=== PATIENT | female | born 2000 | race Caucasian/White ===

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

== ENCOUNTER 2019-08-14 23:33 | Observation (INO) | payer OTHER ==
[2019-08-14] MEDS ORDERED: SODIUM CHLORIDE 0.9% 1,000 ML IV ONE (23:56)
--- NOTE | 2019-08-15 00:10 | ED ---
General Adult HPI - General Source: patient, family Mode of arrival: ambulatory Limitations: no limitations <Lorie Huggins - Last Filed: 08/15/19 01:43> <Raven Lockhart - Last Filed: 08/15/19 06:47> - General Chief complaint: Vaginal Bleeding Stated complaint: Dizziness,Vaginal Bleeding Time Seen by Provider: 08/14/19 23:47 - History of Present Illness Initial comments: 18-year-old female patient presents to the emergency department today for evaluation of heavy vaginal bleeding. Patient states that 2 weeks ago she took methotrexate to induce an . States she is having some light bleeding af ter taking the medication but today around 11 AM started having heavy vaginal bleeding. Patient states she is changing her pad every 2 hours. States she is passing clots but she is unsure how large they are. Patient states a couple of hours ago she developed some shortness of breath and started to feel dizzy. States she feels very shaky. Patient is with 2 elective abortions and one spontaneous . She denies any abdominal or back pain. Denies fever or chills. Patient denies any recent rash, cough, chest pain, nausea, vomiting, diarrhea, constipation, back pain, hematuria, dysuria, urinary urgency, urinary frequency, headache, visual changes, or any other complaints. (Lorie Huggins) - Related Data Home Medications Medication Instructions Recorded Confirmed Acetaminophen [Tylenol] 650 mg PO Q4H PRN 12/02/17 08/15/19 Allergies Allergy/AdvReac Type Severity Reaction Status Date / Time shellfish derived AdvReac Nausea & Verified 08/14/19 23:44 Vomiting Review of Systems ROS Other: All systems not noted in ROS Statement are negative. <Lorie Huggins - Last Filed: 08/15/19 01:43> ROS Other: All systems not noted in ROS Statement are negative. <Raven Lockhart - Last Filed: 08/15/19 06:47> ROS Statement: Those systems with pertinent positive or pertinent negative responses have been documented in the HPI. Past Medical History Past Medical History: No Reported History History of Any Multi-Drug Resistant Organisms: None Reported Past Surgical History: No Surgical Hx Reported Past Psychological History: No Psychological Hx Reported Smoking Status: Never smoker Past Alcohol Use History: None Reported Past Drug Use History: None Reported <Lorie Huggins - Last Filed: 08/15/19 01:43> General Exam Limitations: no limitations General appearance: alert, in no apparent distress, other (This is a well- developed, well-nourished adult female patient in no acute distress. Vital signs upon presentation are temperature 98.5F, pulse 120, respirations 20, blood pressure 118/70, pulse ox 100% on room air.) Eye exam: Present: normal appearance, PERRL, EOMI. Absent: scleral icterus, conjunctival injection, periorbital swelling ENT exam: Present: normal exam, normal oropharynx, mucous membranes moist Respiratory exam: Present: normal lung sounds bilaterally. Absent: respiratory distress, wheezes, rales, rhonchi, stridor Cardiovascular Exam: Present: regular rate, normal rhythm, normal heart sounds. Absent: systolic murmur, diastolic murmur, rubs, gallop, clicks GI/Abdominal exam: Present: soft, normal bowel sounds. Absent: distended, tenderness, guarding, rebound, rigid External exam: Present: normal external exam Speculum exam: Present: vaginal bleeding (Dark red vaginal bleeding), other (Clots in the vaginal vault) By manual exam: Present: uterine enlargement. Absent: adnexal tenderness, uterine tenderness Neurological exam: Present: alert, oriented X3, CN II-XII intact Psychiatric exam: Present: normal affect, normal mood Skin exam: Present: warm, dry, intact, normal color. Absent: rash <Lorie Huggins Prachi - Last Filed: 08/15/19 01:43> Course Vital Signs 08/14/19 08/15/19 08/15/19 23:38 00:07 01:53 Temperature 98.5 F 98.5 F Pulse Rate 120 H 101 H Pulse Rate [ 89 Right Brachial] Respiratory 20 16 Rate Blood Pressure 118/70 Blood Pressure 115/74 [Right Arm Sitting] O2 Sat by Pulse 91 L 100 98 Oximetry 08/15/19 02:13 Temperature 98.1 F Pulse Rate 84 Pulse Rate [ Right Brachial] Respiratory 18 Rate Blood Pressure 117/68 Blood Pressure [Right Arm Sitting] O2 Sat by Pulse 99 Oximetry Medical Decision Making - Lab Data Result diagrams: 08/15/19 00:00 08/15/19 00:06 - Radiology Data Radiology results: report reviewed <Lorie Huggins Prachi - Last Filed: 08/15/19 01:43> - Lab Data Result diagrams: 08/15/19 00:00 08/15/19 00:06 <Raven Lockhart - Last Filed: 08/15/19 06:47> - Medical Decision Making 18-year-old female patient presents to the emergency department today for evaluation of heavy vaginal bleeding. Patient did take medication to induce an approximately 2 weeks ago. Started having heavy bleeding around 11:00 this morning and has been changing her pad every 1-2 hours since. Physical examination reveals soft nontender abdomen. Pelvic exam did reveal dark red blood and clots in the vaginal vault. Labs reviewed and did reveal decreased hemoglobin at 9.3. HCG is 3,000. ABO/Rh is A+. Ultrasound was obtained and did show debris within the uterus and a thickened endometrium concerning for retained products of conception. Patient's vital signs remained stable on the department. My attending Dr. Lockhart did speak to the on-call business excellence manager Dr. Waters who will admit patient overnight and see in the morning for possible D&C. I did discuss findings and results with the patient. She verbalizes understanding and agrees with this plan per (Lorie Huggins) Workup is concerning for retained products of conception, persistent vaginal bleeding, new anemia. Labs and ultrasound were discussed with Dr. Waters who agrees with plan for admission and likely D&C in the morning. Patient was made nothing by mouth IV fluids and pain management were ordered upon admission. (Raven Lockhart) - Lab Data Lab Results 08/15/19 08/15/19 08/15/19 Range/Units 00:00 00:06 00:06 WBC 8.2 (4.0-11.0) k/uL RBC 3.64 L (3.80-5.40) m/uL Hgb 9.3 L (11.4-16.0) gm/dL Hct 29.1 L (34.0-46.0) % MCV 79.8 L (80.0-100.0) fL MCH 25.7 (25.0-35.0) pg MCHC 32.2 (31.0-37.0) g/dL RDW 15.8 H (11.5-15.5) % Plt Count 253 (150-450) k/uL Neutrophils % 65 % Lymphocytes % 29 % Monocytes % 4 % Eosinophils % 1 % Basophils % 1 % Neutrophils # 5.4 (1.3-7.7) k/uL Lymphocytes # 2.4 (1.0-4.8) k/uL Monocytes # 0.3 (0-1.0) k/uL Eosinophils # 0.1 (0-0.7) k/uL Basophils # 0.0 (0-0.2) k/uL Hypochromasia Slight PT 11.3 (9.0-12.0) sec INR 1.1 (<1.2) APTT 24.2 (22.0-30.0) sec Sodium (137-145) mmol/L Potassium (3.5-5.1) mmol/L Chloride (98-107) mmol/L Carbon Dioxide (22-30) mmol/L Anion Gap mmol/L BUN (7-17) mg/dL Creatinine (0.52-1.04) mg/dL Est GFR (CKD-EPI)AfAm (>60 ml/min/1.73 sqM) Est GFR (CKD-EPI)NonAf (>60 ml/min/1.73 sqM) Glucose (74-99) mg/dL Calcium (8.4-10.2) mg/dL Total Bilirubin (0.2-1.3) mg/dL AST (14-36) U/L ALT (4-34) U/L Alkaline Phosphatase (38-126) U/L Total Protein (6.3-8.2) g/dL Albumin (3.5-5.0) g/dL HCG, Quant mIU/mL Urine Color Red Urine Appearance Cloudy H (Clear) Urine pH 5.5 (5.0-8.0) Ur Specific Joffre 1.024 (1.001-1.035) Urine Protein 2+ H (Negative) Urine Glucose (UA) Negative (Negative) Urine Ketones Trace H (Negative) Urine Blood Large H (Negative) Urine Nitrite Negative (Negative) Urine Bilirubin Negative (Negative) Urine Urobilinogen <2.0 (<2.0) mg/dL Ur Leukocyte Esterase Moderate H (Negative) Urine RBC >182 H (0-5) /hpf Urine WBC >182 H (0-5) /hpf Calcium Oxalate Crystal Occasional H (None) /hpf Urine Mucus Many H (None) /hpf Blood Type Blood Type Recheck Bld Type Recheck Status 08/15/19 08/15/19 Range/Units 00:06 00:06 WBC (4.0-11.0) k/uL RBC (3.80-5.40) m/uL Hgb (11.4-16.0) gm/dL Hct (34.0-46.0) % MCV (80.0-100.0) fL MCH (25.0-35.0) pg MCHC (31.0-37.0) g/dL RDW (11.5-15.5) % Plt Count (150-450) k/uL Neutrophils % % Lymphocytes % % Monocytes % % Eosinophils % % Basophils % % Neutrophils # (1.3-7.7) k/uL Lymphocytes # (1.0-4.8) k/uL Monocytes # (0-1.0) k/uL Eosinophils # (0-0.7) k/uL Basophils # (0-0.2) k/uL Hypochromasia PT (9.0-12.0) sec INR (<1.2) APTT (22.0-30.0) sec Sodium 136 L (137-145) mmol/L Potassium 3.9 (3.5-5.1) mmol/L Chloride 103 (98-107) mmol/L Carbon Dioxide 21 L (22-30) mmol/L Anion Gap 12 mmol/L BUN 13 (7-17) mg/dL Creatinine 0.67 (0.52-1.04) mg/dL Est GFR (CKD-EPI)AfAm >90 (>60 ml/min/1.73 sqM) Est GFR (CKD-EPI)NonAf >90 (>60 ml/min/1.73 sqM) Glucose 154 H (74-99) mg/dL Calcium 9.5 (8.4-10.2) mg/dL Total Bilirubin 0.2 (0.2-1.3) mg/dL AST 18 (14-36) U/L ALT 11 (4-34) U/L Alkaline Phosphatase 43 (38-126) U/L Total Protein 6.9 (6.3-8.2) g/dL Albumin 4.3 (3.5-5.0) g/dL HCG, Quant 3043.2 mIU/mL Urine Color Urine Appearance (Clear) Urine pH (5.0-8.0) Ur Specific Joffre (1.001-1.035) Urine Protein (Negative) Urine Glucose (UA) (Negative) Urine Ketones (Negative) Urine Blood (Negative) Urine Nitrite (Negative) Urine Bilirubin (Negative) Urine Urobilinogen (<2.0) mg/dL Ur Leukocyte Esterase (Negative) Urine RBC (0-5) /hpf Urine WBC (0-5) /hpf Calcium Oxalate Crystal (None) /hpf Urine Mucus (None) /hpf Blood Type A Positive Blood Type Recheck A Pos Bld Type Recheck Status No - Radiology Data Ultrasound of the pelvis is obtained. Report was reviewed in its entirety. Impression by Dr. Quinteros shows mixed echogenicity in the lower uterine segment that could relate to blood clot and retained products or no adnexal mass. No evidence of ovarian torsion. (Lorie Huggins) Disposition Decision to Admit Reason: Admit from EC Decision Date: 08/15/19 Decision Time: 01:42 <Lorie Huggins - Last Filed: 08/15/19 01:43> <Raven Lockhart - Last Filed: 08/15/19 06:47> Clinical Impression: Episode of heavy vaginal bleeding, Retained products of conception Disposition: ADMITTED IP TO THIS [facility] Condition: Serious
[2019-08-15 00:24] LABS: Basophils % (A) 1 %; Eosinophils # (A) 0.1 k/uL (0-0.7); Eosinophils % (A) 1 %; HCT 29.1 % (34.0-46.0); HGB 9.3 gm/dL (11.4-16.0); Hypochromasia Slight; Lymphocytes # (A) 2.4 k/uL (1.0-4.8); Lymphocytes % (A) 29 %; MCH 25.7 pg (25.0-35.0); MCHC 32.2 g/dL (31.0-37.0); MCV 79.8 fL (80.0-100.0); Monocytes # (A) 0.3 k/uL (0-1.0); Monocytes % (A) 4 %; Neutrophils # (A) 5.4 k/uL (1.3-7.7); Neutrophils % (A) 65 %; Platelet Count 253 k/uL (150-450); RBC 3.64 m/uL (3.80-5.40); RDW 15.8 % (11.5-15.5); WBC 8.2 k/uL (4.0-11.0)
[2019-08-15 00:31] LABS: Appearance,Urine Cloudy (Clear); Bilirubin,Urine Negative (Negative); Blood,Urine Large (Negative); Calcium Oxalate Crystals,Urine Occasional /hpf; Color,Urine Red; Glucose,Urine (UA) Negative (Negative); Ketones,Urine Trace (Negative); Leukocyte Esterase,Urine Moderate (Negative); Mucus,Urine Many /hpf; Nitrite,Urine Negative (Negative); PH, Urine 5.5 (5.0-8.0); Protein,Urine 2+ (Negative); RBC,Urine >182 /hpf (0-5); Specific Gravity,Urine 1.024 (1.001-1.035); Urobilinogen,Urine <2.0 mg/dL (<2.0); WBC,Urine >182 /hpf (0-5)
[2019-08-15 00:33] LABS: ALT 11 U/L (4-34); AST 18 U/L (14-36); African American GFR (CKD) >90 (>60 ml/min/1.73 sqM); Albumin 4.3 g/dL (3.5-5.0); Alkaline Phosphatase 43 U/L (38-126); Anion Gap 12 mmol/L; Blood Urea Nitrogen 13 mg/dL (7-17); Calcium 9.5 mg/dL (8.4-10.2); Carbon Dioxide 21 mmol/L (22-30); Chloride 103 mmol/L (98-107); Glucose 154 mg/dL (74-99); Non-African American GFR(CKD) >90 (>60 ml/min/1.73 sqM); Potassium 3.9 mmol/L (3.5-5.1); Sodium 136 mmol/L (137-145); Total Bilirubin 0.2 mg/dL (0.2-1.3); Total Protein 6.9 g/dL (6.3-8.2)
[2019-08-15 00:39] LABS: INR 1.1 (<1.2); Partial Thromboplastin Time 24.2 sec (22.0-30.0); Prothrombin Time 11.3 sec (9.0-12.0)
[2019-08-15 00:50] LABS: HCG,Quantitative Serum 3043.2 mIU/mL
--- NOTE | 2019-08-15 00:53 | US ---
EXAMINATION TYPE: US pelvic complete DATE OF EXAM: 08/15/2019 COMPARISON: NONE CLINICAL HISTORY: heavy vaginal bleeding/Elective 2 wks ago. TECHNIQUE: . Transabdominal sonographic images of the pelvis were acquired. Date of LMP: June 2019 EXAM MEASUREMENTS: Uterus: 8.5 x 3.7 x 4.3 cm Endometrial Stripe: 1.3 cm Right Ovary: 4.0 x 2.0 x 2.5 cm Left Ovary: 1.7 x 1.2 x 1.5 cm 1. Uterus: Anteverted Complex debris visualized within cervix, possible blood as patient is bleedi ng heavily 2. Endometrium: Thickened and complex with vascularity, possible retained products vs other 3. Right Ovary: Cyst visualized measuring 2.3 x 1.4 x 1.4 cm 4. Left Ovary: wnl Spectral, color and waveform doppler imaging shows good arterial and venous flow within the ovaries ; there is no evidence for ovarian torsion. 5. Bilateral Adnexa: wnl 6. Posterior cul-de-sac: wnl IMPRESSION: There is mixed echogenicity in the lower uterine segment that could relate to blood clot and retained products. No adnexal mass. No evidence of ovarian torsion.
[2019-08-15] MEDS ORDERED: ONDANSETRON 4 MG/2 ML VIAL IVP PRN (01:39)
[2019-08-15] MEDS ORDERED: NALOXONE 0.4 MG/ML 1 ML VIAL IV PRN (01:39)
[2019-08-15] MEDS ORDERED: SODIUM CHLORIDE 0.9% 1,000 ML IV SCH (01:45)
[2019-08-15 07:52] VITALS: BP 111/56; PULSE 79; RESP 16; TEMP 97.8
[2019-08-15 08:49] LABS: HCT 23.5 % (34.0-46.0); Hypochromasia Moderate; MCH 25.7 pg (25.0-35.0); MCHC 31.5 g/dL (31.0-37.0); MCV 81.4 fL (80.0-100.0); Mean Platelet Volume 7.9; Platelet Count 158 k/uL (150-450); RBC 2.88 m/uL (3.80-5.40); WBC 5.3 k/uL (4.0-11.0)
[2019-08-15 08:55] LABS: HGB 7.4 gm/dL (11.4-16.0)
--- NOTE | 2019-09-06 12:42 | P.HPOB ---
History of Present Illness H&P Date: 08/15/19 Chief Complaint: Vaginal bleeding, status post elective AB This is a 18-year-old 3 para 0020 that states she underwent methotrexate treatment for 6 week on 08/02. Patient has a history of 2 prior elective terminations. Patient states yesterday she noted heavier vaginal bleeding began around 11, she started with passage of clots and was saturating a pad every 2 hours. Patient denies dizziness, lightheadedness, nausea, vomiting. Of note patient notes that after the procedure on she did not have any bleeding until yesterday. Patient presented to the emergency department last evening ultrasound was completed with a thickened endometrium being noted. No adnexal masses were appreciated. Of note hemoglobin was noted to be 9.3. Vital signs were noted to be stable. She notes her menstrual cycles to be regular typically every 2830 days, lasting 3-7 days with moderate flow. Patient denies being on contraceptive at this time, she denies ever taking her control pill or form of control. Patient does desire control when this process is complete. Review of Systems Constitutional: Denies chills, Denies fatigue, Denies fever Ears, nose, mouth and throat: Denies headache Cardiovascular: Denies leg edema Respiratory: Denies dyspnea Gastrointestinal: Denies nausea, Denies vomiting Past Medical History Past Medical History: No Reported History History of Any Multi-Drug Resistant Organisms: None Reported Past Surgical History: No Surgical Hx Reported Past Anesthesia/Blood Transfusion Reactions: No Reported Reaction Past Psychological History: No Psychological Hx Reported Smoking Status: Never smoker Past Alcohol Use History: None Reported Past Drug Use History: None Reported - Past Family History Father Family Medical History: No Reported History Medications and Allergies Home Medications Medication Instructions Recorded Confirmed Type Acetaminophen [Tylenol] 650 mg PO Q4H PRN 12/02/17 08/15/19 History Allergies Allergy/AdvReac Type Severity Reaction Status Date / Time shellfish derived AdvReac Nausea & Verified 08/14/19 23:44 Vomiting Exam Osteopathic Statement: *. No significant issues noted on an osteopathic structural exam other than those noted in the History and Physical/Consult. Vital Signs Temp Pulse Pulse Resp BP BP Pulse Ox 08/15/19 02:13 98.1 F 84 18 117/68 99 08/15/19 01:53 98.5 F 89 16 115/74 98 08/15/19 00:07 101 H 100 08/14/19 23:38 98.5 F 120 H 20 118/70 91 L Intake and Output 08/14/19 08/15/19 08/15/19 22:59 06:59 14:59 Other: Weight 63.503 kg Targeted physical exam is performed in this date and steward/stewardess night a well-nourished well-developed female in no acute distress, patient was resting comfortably when I entered the room. Breathing is noted to be nonlabored, heart has regular rate and rhythm, abdomen is noted be 6 soft and nontender, vaginal exam is deferred, as it was done last night in the emergency department, and she denies heavy bleeding sense last evening. Scant blood on pad overnight. Results Result Diagrams: 08/15/19 00:00 08/15/19 00:06 Abnormal Lab Results - Last 24 Hours (Table) 08/15/19 08/15/19 08/15/19 Range/Units 00:00 00:06 00:06 RBC 3.64 L (3.80-5.40) m/uL Hgb 9.3 L (11.4-16.0) gm/dL Hct 29.1 L (34.0-46.0) % MCV 79.8 L (80.0-100.0) fL RDW 15.8 H (11.5-15.5) % Sodium 136 L (137-145) mmol/L Carbon Dioxide 21 L (22-30) mmol/L Glucose 154 H (74-99) mg/dL Urine Appearance Cloudy H (Clear) Urine Protein 2+ H (Negative) Urine Ketones Trace H (Negative) Urine Blood Large H (Negative) Ur Leukocyte Esterase Moderate H (Negative) Urine RBC >182 H (0-5) /hpf Urine WBC >182 H (0-5) /hpf Calcium Oxalate Crystal Occasional H (None) /hpf Urine Mucus Many H (None) /hpf Assessment and Plan (1) Status post elective Current Visit: Yes Status: Acute Code(s): Z98.890 - OTHER SPECIFIED POSTPROCEDURAL STATES SNOMED Code(s): 043514482 (2) Episode of heavy vaginal bleeding Current Visit: Yes Status: Acute Code(s): N93.9 - ABNORMAL UTERINE AND VAGINAL BLEEDING, UNSPECIFIED SNOMED Code(s): 048808484 Plan: This pleasant 18-year-old 3 para 0020 presented to the emergency department last evening with complaints of heavy vaginal bleeding throughout the day. Patient is status post methotrexate treatment on 08/02 for elective AB. Patient states she did not have bleeding after the treatment until yesterday when she noted bleeding with passage of clots. Patient had ultrasound done last evening with a thickened endometrium being noted. Patient was noted to be having heavier bleeding throughout the day most likely this is contributing to findings of the ultrasound. Upon talking to the patient this morning she is well and without symptoms. Bleeding is noted to be very minimal. Will order CBC, if bleeding is stable allow patient to eat, and offer Cytotec to help with completion of elective AB.
--- NOTE | 2019-09-09 08:31 | P.DS ---
Providers Date of admission: 08/15/19 01:41 Expected date of discharge: 08/15/19 Attending physician: Haylie Waters Primary care physician: Stated None - Discharge Diagnosis(es) (1) Status post elective Status: Acute (2) Episode of heavy vaginal bleeding Status: Acute Hospital Course: This is a 18-year-old 3 para 0020 that underwent methotrexate treatment for a termination on 08/02. Patient has a history of 2 prior elective terminations. Patient notes she started having heavier vaginal bleeding3 and began passing clots she was saturating pad every 2 hours. Patient denies dizziness lightheadedness her nausea and vomiting. Patient notes after the procedure she had minimal bleeding. Patient was presented to the emergency department last evening ultrasound was performed thickened endometrium was noted no adnexal masses are appreciated. Hemoglobin was noted to be 9.3 vital signs are noted to be stable. Patient was admitted overnight minimal vaginal bleeding was noted no cramping. Upon examination patient stated she felt well and wishes discharge home as her bleeding had ceased. Patient was counseled on the need for Cytotec to be given for completion of termination. Patient stated understanding and stated she would fill the prescription, follow-up instructions were discussed with patient in detail. Patient Condition at Discharge: Good Plan - Discharge Summary New Discharge Prescriptions: No Action Acetaminophen Tab [Tylenol Tab] 1,000 mg PO Q6HR PRN PRN Reason: Pain Or Fever > 100.5 miSOPROStoL [Cytotec] 400 mcg PO ONCE Discharge Medication List Acetaminophen Tab [Tylenol Tab] 1,000 mg PO Q6HR PRN 08/18/19 [History] miSOPROStoL [Cytotec] 400 mcg PO ONCE 08/18/19 [History] Follow up Appointment(s)/Referral(s): None,Stated [Primary Care Provider] - 1-2 days Haylie Waters DO [Doctor of Osteopathic Medicine] - 1 Week Activity/Diet/Wound Care/Special Instructions: pelvic rest, NO intercourse until quant. B HCG is zero. she is to follow up with myself next week. bleeding precautions reviewed. she can expect a heavy period like bleed with some passage of clots. OTC ibuprofen for pain relief. cytotec 200mcg, 2 po for completion of elective Ab. Discharge Disposition: HOME SELF-CARE
== END 2019-08-15 10:08 | disposition home or self-care (01) ==
LOC: EC 23:33 → 4FBP 08-15 01:41
PROVIDERS: ADMIT Obstetrics & Gynecology Obstetrics; ATTEND Obstetrics & Gynecology Obstetrics
DX: O07.1 Delayed or excessive hemorrhage following failed attempted termination of pregnancy (principal); Z91.013 Allergy to seafood; Z03.818 Encounter for observation for suspected exposure to other biological agents ruled out
CPT/HCPCS: 96360; 99285; 36415; 86900; 86901; 80053; 85025; 85027; 85610; 85730; 81001; 84702; 93975; 76856; G0378; U0003

== ENCOUNTER 2019-08-18 00:20 | Observation (INO) | payer OTHER ==
[2019-08-18 01:04] LABS: Basophils % (A) 0 %; Eosinophils % (A) 1 %; HCT 20.3 % (34.0-46.0); Hypochromasia Slight; Lymphocytes # (A) 0.8 k/uL (1.0-4.8); Lymphocytes % (A) 30 %; MCH 24.3 pg (25.0-35.0); MCV 78.4 fL (80.0-100.0); Mean Platelet Volume 9.8; Microcytosis Slight; Monocytes # (A) 0.1 k/uL (0-1.0); Monocytes % (A) 5 %; Neutrophils # (A) 1.6 k/uL (1.3-7.7); Neutrophils % (A) 60 %; Platelet Count 156 k/uL (150-450); RBC 2.59 m/uL (3.80-5.40); WBC 2.6 k/uL (4.0-11.0)
[2019-08-18 01:12] LABS: ALT 11 U/L (4-34); AST 21 U/L (14-36); African American GFR (CKD) >90 (>60 ml/min/1.73 sqM); Albumin 3.9 g/dL (3.5-5.0); Alkaline Phosphatase 42 U/L (38-126); Anion Gap 12 mmol/L; Blood Urea Nitrogen 9 mg/dL (7-17); Calcium 8.6 mg/dL (8.4-10.2); Carbon Dioxide 22 mmol/L (22-30); Chloride 101 mmol/L (98-107); Glucose 171 mg/dL (74-99); Non-African American GFR(CKD) >90 (>60 ml/min/1.73 sqM); Potassium 3.4 mmol/L (3.5-5.1); Sodium 135 mmol/L (137-145); Total Bilirubin 0.3 mg/dL (0.2-1.3); Total Protein 6.2 g/dL (6.3-8.2)
[2019-08-18 01:13] LABS: INR 1.1 (<1.2); Partial Thromboplastin Time 23.7 sec (22.0-30.0); Prothrombin Time 11.4 sec (9.0-12.0)
[2019-08-18 01:18] LABS: HGB 6.3 gm/dL (11.4-16.0)
[2019-08-18 01:28] LABS: HCG,Quantitative Serum 1231.4 mIU/mL
--- NOTE | 2019-08-18 01:48 | US ---
EXAMINATION TYPE: US transvaginal DATE OF EXAM: 08/18/2019 COMPARISON: US 08/15/2019 CLINICAL HISTORY: heavy vag bleeding. Heavy vaginal bleeding since 08/14/2019. Patient had in July. . TECHNIQUE: Transvaginal (TV). Date of LMP: 06/13/2019 EXAM MEASUREMENTS: Uterus: 8.1 x 4.3 x 3.6 cm Endometrial Stripe: 1.12 cm Right Ovary: 5.5 x 3.2 x 2.2 cm Left Ovary: 4.2 x 1.7 x 1.8 cm 1. Uterus: Anteverted Complex area with vascularity seen lower within lower uterine endometrium an d cervix: 5.5 x 2.7 x 1.1 cm. 2. Endometrium: Appears heterogeneous, thickened, and to contain complex vascular material as mentangelica pool above. Measures 1.12 cm thick. 3. Right Ovary: Measures enlarged. Anechoic area seen: 2.7 x 2.6 x 1.2 cm. 4. Left Ovary: Measures enlarged. Follicles seen. Spectral, color and waveform doppler imaging shows arterial and venous flow within the ovaries. 5. Bilateral Adnexa: Fluid seen adjacent to right ovary: 1.6 x 1.0 x 0.7 cm. 6. Posterior cul-de-sac: Appears wnl. IMPRESSION: There is complex material in the uterine cavity extending into the cervix consistent with retained products and blood clot. No adnexal mass. Minimal fluid adjacent to the right ovary. No son dence of ovarian torsion.
[2019-08-18] MEDS ORDERED: ONDANSETRON 4 MG/2 ML VIAL IVP STA (01:49)
--- NOTE | 2019-08-18 01:55 | ED ---
Female Urogenital HPI - General Chief complaint: Vaginal Bleeding Stated complaint: Vaginal bleeding Time Seen by Provider: 08/18/19 00:29 Source: patient Mode of arrival: ambulatory Limitations: no limitations - History of Present Illness Initial comments: 18-year-old female patient presents to the emergency department today for evaluation of heavy vaginal bleeding. Patient states that she took Misoprostol to induce about 2.5 weeks ago. Patient was seen for heavy vaginal bleeding 3 days ago and admitted for retained products of conception. Patient states that the OBGYN gave her additional dosage of Misoprostol to aid in passage of products of conception. She states that she took the doses earlier today. Patient states that she has had continued heavy bleeding. She has started to feel dizzy, weak, and near syncopal with standing. States that whenever she stands she gets a head wang, buzzing in her ears, and feels like she is going to pass out. She states that her legs are too weak to hold her. She has increased shortness of breath with any activity. She denies abdominal or back pain. Denies any fever or chills. Patient denies any recent rash, cough, chest pain, vomiting, diarrhea, constipation, back pain, numbness, tingling, hematuria, dysuria, urinary urgency, urinary frequency, visual changes, or any other complaints. Last Menstrual Period: 06/13/19 - Related Data Home Medications Medication Instructions Recorded Confirmed Acetaminophen [Tylenol] 650 mg PO Q4H PRN 12/02/17 08/15/19 Allergies Allergy/AdvReac Type Severity Reaction Status Date / Time shellfish derived AdvReac Nausea & Verified 08/18/19 00:28 Vomiting Review of Systems ROS Statement: Those systems with pertinent positive or pertinent negative responses have been documented in the HPI. ROS Other: All systems not noted in ROS Statement are negative. Past Medical History Past Medical History: No Reported History Additional Past Medical History / Comment(s): . History of Any Multi-Drug Resistant Organisms: None Reported Past Surgical History: No Surgical Hx Reported Past Anesthesia/Blood Transfusion Reactions: No Reported Reaction Past Psychological History: No Psychological Hx Reported Smoking Status: Never smoker Past Alcohol Use History: None Reported Past Drug Use History: None Reported - Past Family History Father Family Medical History: No Reported History General Exam Limitations: no limitations General appearance: alert, in no apparent distress, other (This is a well- developed, well-nourished adult female patient in no acute distress. Patient appears very pale. Vital signs upon presentation are temperature 98.7F, pulse 128, respirations 18, blood pressure 100/58, pulse ox 100% on room air.) Eye exam: Present: normal appearance, PERRL, EOMI, other (Pale conjunctiva). Absent: scleral icterus, conjunctival injection, periorbital swelling ENT exam: Present: normal exam, mucous membranes moist Respiratory exam: Present: normal lung sounds bilaterally. Absent: respiratory distress, wheezes, rales, rhonchi, stridor Cardiovascular Exam: Present: normal rhythm, tachycardia, normal heart sounds. Absent: systolic murmur, diastolic murmur, rubs, gallop, clicks GI/Abdominal exam: Present: soft, normal bowel sounds. Absent: distended, tenderness, guarding, rebound, rigid Neurological exam: Present: alert, oriented X3, CN II-XII intact Psychiatric exam: Present: normal affect, normal mood Skin exam: Present: warm, dry, intact, pallor. Absent: rash Course Vital Signs 08/18/19 08/18/19 08/18/19 00:22 01:11 01:35 Temperature 98.7 F Pulse Rate 128 H 118 H Respiratory 18 20 Rate Blood Pressure 100/58 123/69 105/70 O2 Sat by Pulse 100 97 Oximetry 08/18/19 08/18/19 08/18/19 02:09 02:18 02:28 Temperature 98.5 F 98.5 F 97.6 F Pulse Rate 106 H 103 H 108 H Respiratory 16 16 16 Rate Blood Pressure 107/63 102/65 103/68 O2 Sat by Pulse Oximetry Medical Decision Making - Medical Decision Making 18-year-old female patient presents to the emergency department today for evaluation of heavy vaginal bleeding, weakness, dizziness, any near syncope. Patient took misoprostol 2.5 weeks ago to induce . About 4-5 days ago s he started having heavy vaginal bleeding. Was admitted to the hospital for anemia and retained products, was given additional dosage of misoprostol and discharged. Patient states that her heavy bleeding has persisted. Abdomen is soft and nontender. Patient exhibits mild vaginal bleeding at this time which is dark red in color. Ultrasound was obtained and shows retained products of conception. Hemoglobin is decreased at 6.3 down from 7.4 on 08/15/2019. The case was discussed with airport traffic controller OBGYN Dr. Stapleton who will be taking patient for Suction D&C in the morning. Patient will receive blood transfusion. I did discuss findings, results, and plan with the patient and her mother, they are agreeable. - Lab Data Result diagrams: 08/18/19 00:54 08/18/19 00:54 Lab Results 08/18/19 08/18/19 08/18/19 Range/Units 00:54 00:54 00:54 WBC 2.6 L (4.0-11.0) k/uL RBC 2.59 L (3.80-5.40) m/uL Hgb 6.3 L* (11.4-16.0) gm/dL Hct 20.3 L (34.0-46.0) % MCV 78.4 L (80.0-100.0) fL MCH 24.3 L (25.0-35.0) pg MCHC 31.0 (31.0-37.0) g/dL RDW 16.0 H (11.5-15.5) % Plt Count 156 (150-450) k/uL Neutrophils % 60 % Lymphocytes % 30 % Monocytes % 5 % Eosinophils % 1 % Basophils % 0 % Neutrophils # 1.6 (1.3-7.7) k/uL Lymphocytes # 0.8 L (1.0-4.8) k/uL Monocytes # 0.1 (0-1.0) k/uL Eosinophils # 0.0 (0-0.7) k/uL Basophils # 0.0 (0-0.2) k/uL Hypochromasia Slight Microcytosis Slight PT 11.4 (9.0-12.0) sec INR 1.1 (<1.2) APTT 23.7 (22.0-30.0) sec Sodium 135 L (137-145) mmol/L Potassium 3.4 L (3.5-5.1) mmol/L Chloride 101 (98-107) mmol/L Carbon Dioxide 22 (22-30) mmol/L Anion Gap 12 mmol/L BUN 9 (7-17) mg/dL Creatinine 0.67 (0.52-1.04) mg/dL Est GFR (CKD-EPI)AfAm >90 (>60 ml/min/1.73 sqM) Est GFR (CKD-EPI)NonAf >90 (>60 ml/min/1.73 sqM) Glucose 171 H (74-99) mg/dL Calcium 8.6 (8.4-10.2) mg/dL Total Bilirubin 0.3 (0.2-1.3) mg/dL AST 21 (14-36) U/L ALT 11 (4-34) U/L Alkaline Phosphatase 42 (38-126) U/L Total Protein 6.2 L (6.3-8.2) g/dL Albumin 3.9 (3.5-5.0) g/dL HCG, Quant 1231.4 mIU/mL Blood Type Blood Type Recheck Bld Type Recheck Status Antibody Screen Crossmatch Spec Expiration Date 08/18/19 Range/Units 00:54 WBC (4.0-11.0) k/uL RBC (3.80-5.40) m/uL Hgb (11.4-16.0) gm/dL Hct (34.0-46.0) % MCV (80.0-100.0) fL MCH (25.0-35.0) pg MCHC (31.0-37.0) g/dL RDW (11.5-15.5) % Plt Count (150-450) k/uL Neutrophils % % Lymphocytes % % Monocytes % % Eosinophils % % Basophils % % Neutrophils # (1.3-7.7) k/uL Lymphocytes # (1.0-4.8) k/uL Monocytes # (0-1.0) k/uL Eosinophils # (0-0.7) k/uL Basophils # (0-0.2) k/uL Hypochromasia Microcytosis PT (9.0-12.0) sec INR (<1.2) APTT (22.0-30.0) sec Sodium (137-145) mmol/L Potassium (3.5-5.1) mmol/L Chloride (98-107) mmol/L Carbon Dioxide (22-30) mmol/L Anion Gap mmol/L BUN (7-17) mg/dL Creatinine (0.52-1.04) mg/dL Est GFR (CKD-EPI)AfAm (>60 ml/min/1.73 sqM) Est GFR (CKD-EPI)NonAf (>60 ml/min/1.73 sqM) Glucose (74-99) mg/dL Calcium (8.4-10.2) mg/dL Total Bilirubin (0.2-1.3) mg/dL AST (14-36) U/L ALT (4-34) U/L Alkaline Phosphatase (38-126) U/L Total Protein (6.3-8.2) g/dL Albumin (3.5-5.0) g/dL HCG, Quant mIU/mL Blood Type A Positive Blood Type Recheck A Pos Bld Type Recheck Status No Antibody Screen NEGATIVE Crossmatch See Detail Spec Expiration Date 08/21/2019 - 3269 - Radiology Data Radiology results: report reviewed, image reviewed Transvaginal ultrasound was obtained. Report was reviewed in its entirety. Impression by Dr. Quinteros shows Material uterine cavity extending into the cervix consistent with retained products of blood clot. No adnexal mass. Minimal fluid adjacent to the right ovary. No evidence of ovarian torsion. Disposition Clinical Impression: Vaginal bleeding, Retained products of conception, Symptomatic anemia Disposition: ADMITTED IP TO THIS [facility] Condition: Serious Referrals: None,Stated [Primary Care Provider] - 1-2 days Decision to Admit Reason: Admit from EC Decision Date: 08/18/19 Decision Time: 02:15
[2019-08-18] MEDS ORDERED: ONDANSETRON 4 MG/2 ML VIAL IVP PRN (02:12)
[2019-08-18] MEDS ORDERED: NALOXONE 0.4 MG/ML 1 ML VIAL IV PRN (02:12)
[2019-08-18] MEDS ORDERED: FAMOTIDINE 20 MG/2 ML VIAL IV STA (02:14)
[2019-08-18 06:06] LABS: Anisocytosis Slight; Basophils % (A) 1 %; Eosinophils # (A) 0.1 k/uL (0-0.7); Eosinophils % (A) 2 %; HCT 21.2 % (34.0-46.0); Lymphocytes # (A) 0.9 k/uL (1.0-4.8); Lymphocytes % (A) 24 %; MCH 27.3 pg (25.0-35.0); MCHC 33.8 g/dL (31.0-37.0); MCV 80.9 fL (80.0-100.0); Mean Platelet Volume 8.4; Monocytes # (A) 0.4 k/uL (0-1.0); Monocytes % (A) 10 %; Neutrophils # (A) 2.3 k/uL (1.3-7.7); Neutrophils % (A) 61 %; Platelet Count 188 k/uL (150-450); RBC 2.62 m/uL (3.80-5.40); RDW 16.6 % (11.5-15.5); WBC 3.7 k/uL (4.0-11.0)
[2019-08-18 06:07] LABS: HGB 7.1 gm/dL (11.4-16.0)
--- NOTE | 2019-08-18 07:39 | P.HPOB ---
History of Present Illness H&P Date: 08/18/19 Chief Complaint: Continued heavy vaginal bleeding, dizziness and weakness. This is a 18-year-old white female 3 para 0020 status post induced approximately 3 weeks ago via missal postal orally. Patient presented to the emergency room 3 days ago with heavy bleeding. Hemoglobin was noted to be 7.4. Ultrasound suggested retained products. An additional dose of missal postal was given. She states since that time the bleeding has become heavier. Today she was feeling lightheaded, weak and dizzy. Unable to stand. She re- presented to the emergency room. Hemoglobin was 6.3, ultrasound again suggested retained products. Pulse 128. Blood transfusion has been given 2. Previous systems is otherwise negative. Past medical history is negative. Past surgical history is negative. Current medications none. ALLERGIES none known. Social history patient is single, she denies alcohol tobacco or drug use. She is currently unemployed and lives in [place] with her boyfriend. [employer] history is negative for gonorrhea or Chlamydia. Menarche began at the age of 11. Menses are monthly 3-5 days in duration. Family history is noncontributory. On exam she is 5 foot 5 inches, 156 pounds. Vital signs this morning are more stable after 2 units of red blood cells. General physical exam is negative. Chest is clear. Extremities reveal no edema. Cardiac exam reveals regular rate and rhythm with no murmur click or rub. Abdomen is soft and nontender. Pelvic examination is deferred to the operating room. Blood type is A+. Impression: Retained products of conception status post induced at 6 weeks' gestation. Anemia, now improved after 2 units of red blood cells. Plan: I have discussed with the patient dilatation and curettage. We will perform this morning. All risks, benefits and alternatives have been described. The risks of anesthesia are reviewed. The risk of bleeding, infection, perforation to the uterine cavity are also discussed. Likely she will be discharged home later this morning after the procedure. I have reviewed with her options for contraception and we will discuss this more thoroughly in the office. Review of Systems Constitutional: Reports as per HPI, Reports fatigue, Reports weakness Past Medical History Past Medical History: No Reported History Additional Past Medical History / Comment(s): . History of Any Multi-Drug Resistant Organisms: None Reported Past Surgical History: No Surgical Hx Reported Past Anesthesia/Blood Transfusion Reactions: No Reported Reaction Past Psychological History: No Psychological Hx Reported Smoking Status: Never smoker Past Alcohol Use History: None Reported Past Drug Use History: None Reported - Past Family History Father Family Medical History: No Reported History Medications and Allergies Home Medications Medication Instructions Recorded Confirmed Type Acetaminophen [Tylenol] 650 mg PO Q4H PRN 12/02/17 08/18/19 History Allergies Allergy/AdvReac Type Severity Reaction Status Date / Time shellfish derived AdvReac Nausea & Verified 08/18/19 03:50 Vomiting Exam Vital Signs Temp Pulse Pulse Resp BP BP Pulse Ox 08/18/19 07:26 98.5 F 82 18 108/62 100 08/18/19 07:13 98.5 F 82 18 108/62 100 08/18/19 06:44 98.4 F 76 16 108/72 100 08/18/19 06:34 98.4 F 83 16 104/67 100 08/18/19 05:27 98.4 F 83 16 104/67 100 08/18/19 05:26 98.5 F 94 16 105/67 99 08/18/19 04:33 99 F 98 16 106/72 100 08/18/19 04:30 99 F 98 16 106/72 08/18/19 03:48 16 08/18/19 03:36 98.1 F 101 H 16 113/50 08/18/19 03:06 98.2 F 104 H 16 105/67 08/18/19 02:56 97.5 F L 96 16 98/74 08/18/19 02:40 97.5 F L 98 16 103/74 08/18/19 02:28 97.6 F 108 H 16 103/68 08/18/19 02:18 98.5 F 103 H 16 102/65 08/18/19 02:09 98.5 F 106 H 16 107/63 08/18/19 01:35 118 H 20 105/70 97 08/18/19 01:11 123/69 08/18/19 00:22 98.7 F 128 H 18 100/58 100 Intake and Output 08/17/19 08/18/19 08/18/19 22:59 06:59 14:59 Intake Total 320 Balance 320 Intake: Blood Product 320 Rc As-1 Unit 10 [id number] Rc As-1 Unit 0 [id number] Rc Irr As1 Unit 310 [id number] Other: Weight 70.902 kg See dictation under HPI please Results Result Diagrams: 08/18/19 05:38 08/18/19 00:54 Abnormal Lab Results - Last 24 Hours (Table) 08/18/19 08/18/19 08/18/19 Range/Units 00:54 00:54 00:54 WBC 2.6 L (4.0-11.0) k/uL RBC 2.59 L (3.80-5.40) m/uL Hgb 6.3 L* (11.4-16.0) gm/dL Hct 20.3 L (34.0-46.0) % MCV 78.4 L (80.0-100.0) fL MCH 24.3 L (25.0-35.0) pg RDW 16.0 H (11.5-15.5) % Lymphocytes # 0.8 L (1.0-4.8) k/uL Sodium 135 L (137-145) mmol/L Potassium 3.4 L (3.5-5.1) mmol/L Glucose 171 H (74-99) mg/dL Total Protein 6.2 L (6.3-8.2) g/dL Crossmatch See Detail 08/18/19 Range/Units 05:38 WBC 3.7 L (4.0-11.0) k/uL RBC 2.62 L (3.80-5.40) m/uL Hgb 7.1 L (11.4-16.0) gm/dL Hct 21.2 L (34.0-46.0) % MCV (80.0-100.0) fL MCH (25.0-35.0) pg RDW 16.6 H (11.5-15.5) % Lymphocytes # 0.9 L (1.0-4.8) k/uL Sodium (137-145) mmol/L Potassium (3.5-5.1) mmol/L Glucose (74-99) mg/dL Total Protein (6.3-8.2) g/dL Crossmatch Assessment and Plan Assessment: Retained products of conception, status post induced at 6 weeks' gestation. Anemia, improved after 2 units of packed red blood cells Plan: For suction dilatation and curettage of the uterine cavity this morning. All risks and benefits discussed in detail. All questions answered. Time with Patient: Less than 30
[2019-08-18] MEDS ORDERED: PROPOFOL 10 MG/ML 20 ML VIAL IV ONE (08:59)
[2019-08-18] MEDS ORDERED: LIDOCAINE 1% INJ 10MG/ML (20 ML MDV) ONE (08:59)
[2019-08-18] MEDS ORDERED: MIDAZOLAM 2 MG/2 ML VIAL ONE (08:59)
[2019-08-18] MEDS ORDERED: fentaNYL (PF) 50 MCG/ML 2 ML AMP ONE (08:59)
[2019-08-18] MEDS ORDERED: FAMOTIDINE 20 MG/2 ML VIAL IV SCH (09:00)
[2019-08-18] MEDS ORDERED: IV FLUID CONTINUATION 1,000 ML IV ONE (09:00)
[2019-08-18] MEDS ORDERED: SODIUM CHLORIDE 0.9% 100 ML with ceFAZolin 2,000 MG IV ONE ×2 (09:11)
[2019-08-18] MEDS ORDERED: SILVER NITRATE APPLICATOR 1 EACH STICK..EA. TOPICAL ONE (09:16)
--- NOTE | 2019-08-18 09:23 | P.OP ---
Date of Procedure: 08/18/19 Preoperative Diagnosis: Retained products of conception after elective Postoperative Diagnosis: Same Procedure(s) Performed: Suction dilatation and curettage of the uterine cavity Anesthesia: STEWART Surgeon: Maggie Stapleton Estimated Blood Loss (ml): 100 IV fluids (ml): 50 Urine output (ml): 200 Pathology: other (Products of conception) Condition: stable Disposition: PACU Description of Procedure: Patient is brought to the operating suite where a general anesthetic is administered without difficulty. She's placed in the dorsal lithotomy position. The appropriate timeout was performed to assure proper patient and procedural identification. Examination under anesthesia reveals a 6-8 week size uterus in the anteverted position. Cervix is spontaneously dilated and there are products of conception in the cervix and vagina. The cervix, vagina, and lower perineal bodies are all prepped and draped in usual sterile fashion. Weighted speculum was placed into the vagina. Bladder is drained for approximately 200 mL of clear yellow urine. The largest dilator is easily placed into the cervix. Anterior lip of the cervix is gently grasped with a double-tooth tenaculum. A #8 curved suction curette is placed to the dome of the fundus and under proper filling pressures the cavity is evacuated. A medium sharp curette is used to assure that all products of conception had been removed. Cervix is clean and dry. Uterus is massaged. All sponge needle and enhancement counts are correct. S Alin blood loss 100 mL considering the large clot in the vagina and lower uterine segment. Patient is brought back to recovery room in very good condition. She is finishing the second unit of packed red blood cells for anemia on admission, hemoglobin 6.4. Vital signs are stable at this time, pulse 76, blood pressure 104/56, 100% O2 saturation. Toradol is given prior to leaving the operative room. Blood type is A+. Patient will be discharged home later this morning in follow-up with me in the office in 2 weeks.
[2019-08-18] MEDS ORDERED: KETOROLAC 30 MG/ML 1 ML VIAL IVP ONE (10:05)
[2019-08-18] MEDS ORDERED: IBUPROFEN 600 MG TAB PO PRN (11:43)
[2019-08-18 14:13] VITALS: TEMP 97.7
[2019-08-18 14:29] VITALS: BP 121/66; PULSE 92; RESP 16
== END 2019-08-18 14:59 | disposition home or self-care (01) ==
LOC: EC 00:20 → 6PED 02:15
PROVIDERS: ADMIT Obstetrics & Gynecology; ATTEND Obstetrics & Gynecology
DX: O07.1 Delayed or excessive hemorrhage following failed attempted termination of pregnancy (principal); D64.9 Anemia, unspecified; Z03.818 Encounter for observation for suspected exposure to other biological agents ruled out; Z91.013 Allergy to seafood; Z87.59 Personal history of other complications of pregnancy, childbirth and the puerperium; Z79.899 Other long term (current) drug therapy
CPT/HCPCS: 96374; 99285; 36415; 86900; 86901; 88305; 80053; 85025; 85610; 85730; 86850; 86920; 84702; 93975; 76830; 59812; G0378; P9016; U0003; J2250; J0690; J2001; J3010; J1885; J2704